=== PATIENT | female | born 1940 | race African-American/Black ===

== ENCOUNTER 2016-11-25 09:57 | Inpatient (IN) | payer MEDICARE, MEDICAID ==
[~2016-11-25] VITALS: Ht 170.2 cm; Wt 77.1 kg
[~2016-11-25 09:57] MED LIST: AMLO2.5T45 PO; ASPI-1159 PO; LOSA1TAB34 PO; MECL-109 PO; ZOLP10TA6 PO
[2016-11-25 10:42] LABS: BASOPHILS % 1.5 % (0.0-2.0); EOSINOPHILS % 1.7 % (0.0-5.0); HEMOGLOBIN. 12.3 g/dL (12.0-16.0); LYMPHOCYTES % 24.3 % (20.0-50.0); MEAN CORPUSCULAR HEMOGLOBIN 28.1 pg (28.0-32.0); MEAN CORPUSCULAR VOLUME 84.4 fL (81.0-99.0); MEAN PLATELET VOLUME 7.5 fl (7.4-10.4); MONOCYTES % 8.1 % (2.0-8.0); NEUTROPHILS % 64.4 % (40.0-76.0); PLATELET 251 x1000/uL (130-400); RED BLOOD CELL COUNT 4.38 mill/uL (4.2-5.4); RED CELL DISTRIBUTION WIDTH 17.5 % (11.6-14.6)
[2016-11-25 10:51] LABS: INR 1.1; PARTIAL THROMBOPLASTIN TIME 26.4 sec (24.0-34.0)
[2016-11-25 10:53] LABS: CARBON DIOXIDE 31 mEq/L (21-32); CHLORIDE 102 mEq/L (98-107)
[2016-11-25 10:59] LABS: CREATINE KINASE MB FRACTION 1.6 ng/mL (0.5-3.6); TROPONIN I < 0.02 ng/mL (0.00-0.04)
[2016-11-25] MEDS ORDERED: FUROSEMIDE 20MG/2ML VIAL IVP ONE (11:15)
[2016-11-25] MEDS ORDERED: POTASSIUM CHLORIDE 20MEQ TABLET SR PO ONE (11:45)
[2016-11-25 12:21] LABS: CLARITY URINE CLEAR (CLEAR); COLOR URINE YELLOW (YELLOW); GLUCOSE URINE NEGATIVE (NEGATIVE); KETONES URINE NEGATIVE (NEGATIVE); LEUKOCYTE ESTERASE URINE NEGATIVE (NEGATIVE); NITRITE URINE NEGATIVE (NEGATIVE); OCCULT BLOOD URINE NEGATIVE (NEGATIVE); PROTEIN URINE NEGATIVE (NEGATIVE); SPECIFIC GRAVITY URINE 1.011 (1.005-1.030); UROBILINOGEN URINE 0.2 E.U./dL (0.2-1.0)
[2016-11-25] MEDS: FUROSEMIDE 20MG/2ML VIAL IVP SCH (13:30)
[2016-11-25] MEDS ORDERED: ALPRAZOLAM 0.5 MG TABLET PO PRN (14:00)
[2016-11-25 16:00] VITALS: BP 155/106
[2016-11-25 16:37] VITALS: BP 155/106
[2016-11-25 16:58] VITALS: BP 155/106
[2016-11-25] MEDS: APIXABAN 5 MG TABLET PO SCH (17:00)
[2016-11-25] MEDS ORDERED: FURO-151 PO (17:10)
[2016-11-25] MEDS ORDERED: POTA10CA42 PO (17:10)
[2016-11-25] MEDS: LOSARTAN POTASSIUM 100 MG TABLET PO SCH (18:00)
[2016-11-25 20:00] VITALS: BP 144/92
[2016-11-25] MEDS ORDERED: CLONIDINE 0.1MG TABLET PO PRN (20:45)
[2016-11-25 23:36] VITALS: BP 136/86
[2016-11-26 04:00] VITALS: BP 142/82
[2016-11-26] MEDS: DILTIAZEM HCL 60MG TABLET PO SCH ×5 (06:00→23:57)
[2016-11-26 06:24] LABS: BASOPHILS % 1.2 % (0.0-2.0); HEMATOCRIT. 34.1 % (36.0-48.0); HEMOGLOBIN. 11.2 g/dL (12.0-16.0); MEAN CORPUSCULAR HEMOGLOBIN 27.5 pg (28.0-32.0); MEAN CORPUSCULAR VOLUME 83.9 fL (81.0-99.0); MEAN PLATELET VOLUME 7.5 fl (7.4-10.4); MONOCYTES % 10.1 % (2.0-8.0); NEUTROPHILS % 58.7 % (40.0-76.0); PLATELET 224 x1000/uL (130-400); RED BLOOD CELL COUNT 4.07 mill/uL (4.2-5.4); RED CELL DISTRIBUTION WIDTH 17.5 % (11.6-14.6)
[2016-11-26 07:54] LABS: CARBON DIOXIDE 29 mEq/L (21-32); CHLORIDE 105 mEq/L (98-107)
[2016-11-26 08:00] VITALS: BP 149/92
[2016-11-26] MEDS: APIXABAN 5 MG TABLET PO SCH ×2 (08:53→17:00)
[2016-11-26] MEDS: FUROSEMIDE 20MG/2ML VIAL IVP SCH (08:56)
[2016-11-26] MEDS: LOSARTAN POTASSIUM 100 MG TABLET PO SCH (08:57)
[2016-11-26] MEDS ORDERED: POTASSIUM CHLORIDE 20MEQ TABLET SR PO SCH (09:00)
[2016-11-26] MEDS ORDERED: POTASSIUM CHLORIDE 20MEQ TABLET SR PO NR (11:45)
[2016-11-26 12:00] VITALS: BP 112/70
[2016-11-26 16:00] VITALS: BP 131/92
[2016-11-26] MEDS ORDERED: ACETAMINOPHEN 325MG TABLET PO PRN (16:30)
[2016-11-26] MEDS: POTASSIUM CHLORIDE 20MEQ TABLET SR PO SCH (17:16)
[2016-11-26 20:00] VITALS: BP 113/89
[2016-11-27] VITALS: BP 117/66
[2016-11-27 03:49] VITALS: BP 128/73
[2016-11-27] MEDS: DILTIAZEM HCL 60MG TABLET PO SCH ×3 (06:00→17:04)
[2016-11-27 06:10] LABS: BASOPHILS % 1.2 % (0.0-2.0); EOSINOPHILS % 3.1 % (0.0-5.0); HEMATOCRIT. 35.5 % (36.0-48.0); HEMOGLOBIN. 11.5 g/dL (12.0-16.0); MEAN CORPUSCULAR HEMOGLOBIN 27.6 pg (28.0-32.0); MEAN CORPUSCULAR VOLUME 84.9 fL (81.0-99.0); MEAN PLATELET VOLUME 7.5 fl (7.4-10.4); MONOCYTES % 8.8 % (2.0-8.0); NEUTROPHILS % 53.9 % (40.0-76.0); PLATELET 231 x1000/uL (130-400); RED BLOOD CELL COUNT 4.18 mill/uL (4.2-5.4)
[2016-11-27 08:00] VITALS: BP 144/93
[2016-11-27] MEDS: POTASSIUM CHLORIDE 20MEQ TABLET SR PO SCH ×2 (08:52→17:05)
[2016-11-27] MEDS: FUROSEMIDE 20MG/2ML VIAL IVP SCH (08:52)
[2016-11-27] MEDS: LOSARTAN POTASSIUM 100 MG TABLET PO SCH (08:52)
[2016-11-27] MEDS: APIXABAN 5 MG TABLET PO SCH ×2 (08:59→17:00)
[2016-11-27 12:00] VITALS: BP 138/98
[2016-11-27 16:00] VITALS: BP 154/92
[2016-11-27 20:00] VITALS: BP 138/81
== END 2016-11-27 23:00 | disposition left against medical advice (07) | DRG 308 ==
LOC: EDBEDREQ 10:21 → ER 10:31 → 8WST 11:11 → EDBEDREQ 11:28 → ENRESERV 15:24 → 8WST 11-27 20:28
PROVIDERS: ADMIT Specialist; ATTEND Specialist
DX: I48.91 Unspecified atrial fibrillation (principal); I50.33 Acute on chronic diastolic (congestive) heart failure; C55 Malignant neoplasm of uterus, part unspecified; E78.00 Pure hypercholesterolemia, unspecified; E87.6 Hypokalemia; F03.90 Unspecified dementia, unspecified severity, without behavioral disturbance, psychotic disturbance, mood disturbance, and anxiety; F32.9 Major depressive disorder, single episode, unspecified; F41.9 Anxiety disorder, unspecified; G89.29 Other chronic pain; H26.9 Unspecified cataract; I11.0 Hypertensive heart disease with heart failure; M51.9 Unspecified thoracic, thoracolumbar and lumbosacral intervertebral disc disorder; R26.81 Unsteadiness on feet; J44.9 Chronic obstructive pulmonary disease, unspecified; T50.2X5A Adverse effect of carbonic-anhydrase inhibitors, benzothiadiazides and other diuretics, initial encounter; Z53.21 Procedure and treatment not carried out due to patient leaving prior to being seen by health care provider; Z88.0 Allergy status to penicillin; Z90.710 Acquired absence of both cervix and uterus; Z91.14 Patient's other noncompliance with medication regimen; Z91.19 Patient's noncompliance with other medical treatment and regimen; Z79.82 Long term (current) use of aspirin; Z79.01 Long term (current) use of anticoagulants; Z79.899 Other long term (current) drug therapy; Y92.89 Other specified places as the place of occurrence of the external cause; Z86.73 Personal history of transient ischemic attack (TIA), and cerebral infarction without residual deficits; Z87.11 Personal history of peptic ulcer disease; Z87.891 Personal history of nicotine dependence; Z82.49 Family history of ischemic heart disease and other diseases of the circulatory system
CPT/HCPCS: 36415; 70450; 71010; 80048; 80053; 81003; 82533; 82553; 82962; 83735; 83880; 84443; 84484; 85025; 85610; 85730; 93005; 96374; 99291; J1940

== ENCOUNTER 2017-05-24 08:58 | Emergency (ER) | payer MEDICARE, MEDICAID ==
[~2017-05-24] VITALS: Ht 170.2 cm; Wt 78.0 kg
[~2017-05-24 08:58] MED LIST changes: +FURO-151 PO; +POTA10CA42 PO
[2017-05-24] MEDS ORDERED: ONDANSETRON 4MG ODT PO STA (14:28)
[2017-05-24] MEDS ORDERED: IBUPROFEN 600MG TABLET PO STA (14:28)
[2017-05-24 14:58] LABS: BASOPHILS % 0.7 % (0.0-2.0); EOSINOPHILS % 0.4 % (0.0-5.0); HEMATOCRIT. 37.6 % (36.0-48.0); HEMOGLOBIN. 12.3 g/dL (12.0-16.0); LYMPHOCYTES % 12.2 % (20.0-50.0); MEAN CORPUSCULAR HEMOGLOBIN 28.3 pg (28.0-32.0); MEAN CORPUSCULAR VOLUME 86.4 fL (81.0-99.0); MEAN PLATELET VOLUME 7.5 fl (7.4-10.4); MONOCYTES % 3.3 % (2.0-8.0); NEUTROPHILS % 83.4 % (40.0-76.0); PLATELET 268 x1000/uL (130-400); RED BLOOD CELL COUNT 4.35 mill/uL (4.2-5.4); RED CELL DISTRIBUTION WIDTH 16.1 % (11.6-14.6)
[2017-05-24 15:04] LABS: CHLORIDE 100 mEq/L (98-107)
[2017-05-24 15:15] LABS: CARBON DIOXIDE 30 mEq/L (21-32)
[2017-05-24] MEDS ORDERED: LEVOFLOXACIN 500MG TABLET PO ONE (16:45)
[2017-05-24] MEDS ORDERED: METRONIDAZOLE 500MG TABLET PO ONE (16:45)
[2017-05-24 17:24] VITALS: BP 152/89
[2017-05-26] MEDS ORDERED: LEVO500T89 PO (22:07)
[2017-05-26] MEDS ORDERED: METR250T PO (22:09)
[2017-05-26] MEDS ORDERED: METR500T4 PO (22:09)
== END 2017-05-24 17:26 | disposition home or self-care (01) ==
LOC: ER 09:06
DX: R10.84 Generalized abdominal pain (principal); R11.0 Nausea; I10 Essential (primary) hypertension; Z86.73 Personal history of transient ischemic attack (TIA), and cerebral infarction without residual deficits; Z90.710 Acquired absence of both cervix and uterus; Z88.0 Allergy status to penicillin; Z79.82 Long term (current) use of aspirin
CPT/HCPCS: 36415; 71010; 74176; 80053; 81025; 83690; 85025; 99285; Q0162